=== PATIENT | male | born 1950 | race Caucasian/White ===

== ENCOUNTER 2021-08-31 18:09 | Emergency (ER) | payer MEDICARE ==
[~2021-08-31] VITALS: Ht 152.4 cm; Wt 59.0 kg
[2021-08-31 18:10] VITALS: BP_SYST 97
--- NOTE | 2021-08-31 18:10 | NUR ---
BROUGHT IN BY [facility], PLACED IN BED #4 AND TRIAGED. REPORT GIVEN TO KYLE
[2021-08-31] MEDS ORDERED: DEXTROSE 50% JECT 50 ML DISP.SYRIN IVP ONE (18:30)
--- NOTE | 2021-08-31 18:50 | NUR ---
ER at bedside examining patient.
[2021-08-31 18:52] LABS: BASOPHILS # (AUTO) 0.1 K/uL (0.0-0.2); BASOPHILS % (AUTO) 1.5 % (0.0-2.0); EOSINOPHILS # (AUTO) 0.1 K/uL (0.0-0.4); EOSINOPHILS % (AUTO) 1.6 % (0.0-4.0); HEMATOCRIT 33.1 % (36-54); LYMPHOCYTES # (AUTO) 2.2 K/uL (1.0-5.5); LYMPHOCYTES % (AUTO) 29.7 % (20.5-51.5); MEAN CORPUSCULAR HEMOGLOBIN 31 pg (27-31); MEAN CORPUSCULAR HGB CONC 33 % (32-36); MEAN CORPUSCULAR VOLUME 94 fL (79.0-98.0); MONOCYTES # (AUTO) 0.8 K/uL (0.0-1.0); MONOCYTES % (AUTO) 11.3 % (1.7-9.3); NEUTROPHILS # (AUTO) 4.1 K/uL (1.8-7.7); NEUTROPHILS % (AUTO) 55.9 % (40.0-70.0); PLATELET COUNT (AUTO) 201 K/uL (130-430); RED BLOOD CELL COUNT(AUTO) 3.53 MIL/uL (4.2-6.2); RED CELL DISTRIBUTION WIDTH 14.4 % (9.0-15.0); WHITE BLOOD COUNT (AUTO) 7.3 K/uL (4.8-10.8)
[2021-08-31 19:00] LABS: ANION GAP 7 (5-15); CALCIUM 8.8 mg/dL (8.4-11.0); CHLORIDE 105 mmol/L (98-107); CREATININE 0.92 mg/dL (0.55-1.30); GLUCOSE 64 mg/dL (70-99); POTASSIUM 5.1 mmol/L (3.5-5.1); SODIUM SERUM 137 mmol/L (136-145); UREA NITROGEN, BLOOD 23 mg/dL (8-21)
--- NOTE | 2021-08-31 19:05 | NUR ---
Pt BIBA coming from home. Pt is A&Ox4. Skin intact. Pt c/o being at home and was about to eat dinner. When pt was about to eat he got dizzy and had syncopal episode. LOC. Did not hit head. Daughter called 911 and on scene pt's BS was 41. On arrival pt's BS is at 96. Pt no has no c/o. No chest pain and no sob. Denies n/v. NKA. Has hx of Dm and drug use. Bed in lowest position. VSS.
[2021-08-31 19:09] LABS: ALANINE AMINOTRANSFERASE 33 U/L (12-78); ALBUMIN 3.2 g/dL (3.4-4.8); ASPARTATE AMINOTRANSFERASE 28 U/L (10-37); LIPASE 11 U/L (73-393); TOTAL BILIRUBIN 0.1 mg/dL (0.0-1.0)
--- NOTE | 2021-08-31 19:23 | NUR ---
Report given to Melinda to assume care.
--- NOTE | 2021-08-31 19:24 | NUR ---
REPORT RECIEVED FROM LIZZETH WRIGHT. PT IN BED RESTING. PT GIVEN TURKEY SANDWICH WITH OJ, AND CHIPS DUE TO LOW GLUCOSE. AWARE
[2021-08-31] MEDS ORDERED: DEXTROSE 50% JECT 50 ML DISP.SYRIN ONE (20:37)
--- NOTE | 2021-08-31 21:40 | NUR ---
URINE OBTAINED AND SENT TO LAB
[2021-08-31 23:11] VITALS: BP_SYST 140
--- NOTE | 2021-08-31 23:12 | NUR ---
PT PENDING DISCHARGE, IN BED NO ACUTE DISTRESS. PT IN POSITION OF COMFORT. WILL MONITOR NEEDED
--- NOTE | 2021-08-31 23:42 | NUR ---
PT DISCHARGED WITH [facility] INSTRUCTIONS, PT ENCOURAGED TO EAT BALANCED MEALS AND FOLLOW UP WITH PRIMARY CARE DOCTOR IN 2 TO 4 DAYS. PT VERBALIZED UNDERSTANDING. PT DISCHARGED IN STABLE CONDITION WITH ALL BELONGINGS VIA TAXI WITH VOUCHER.
[2021-09-01 00:11] LABS: BILIRUBIN,URINE NEGATIVE (NEGATIVE); BLOOD, URINE NEGATIVE (NEGATIVE); CLARITY/URINE CLEAR (CLEAR); COLOR,URINE YELLOW (YELLOW); GLUCOSE,URINE 3+ (NEGATIVE); KETONES,URINE NEGATIVE (NEGATIVE); LEUKOCYTE ESTERASE ,URINE NEGATIVE (NEGATIVE); NITRITE, URINE NEGATIVE (NEGATIVE); PH,URINE 6.5 (5.0-8.0); PROTEIN URINE NEGATIVE (NEGATIVE); UROBILINOGEN,URINE 0.2 (0.2-1.0)
[2021-09-01 00:42] LABS: BACTERIA,URINE RARE /HPF (None Seen); RBC,URINE 0-3 /HPF (0-3); WBC,URINE 0-3 /HPF (0-3)
== END 2021-08-31 23:44 | disposition home or self-care (01) ==
LOC: SED 18:09
DX: E11.649 Type 2 diabetes mellitus with hypoglycemia without coma (principal); R55 Syncope and collapse; D64.9 Anemia, unspecified
CPT/HCPCS: 36415; 80053; 81000; 82962; 83690; 84484; 85025; 93005; 96374; 99284

== ENCOUNTER 2022-05-31 16:44 | Emergency (ER) | payer OTHER, MEDICAID ==
[~2022-05-31] VITALS: Ht 162.6 cm; Wt 68.0 kg
[2022-05-31 16:45] VITALS: BP_SYST 206
--- NOTE | 2022-05-31 16:45 | NUR ---
BROUGHT IN BY [facility], TRIAGED. AWAITING ER BED AVAILABILITY
--- NOTE | 2022-05-31 17:03 | NUR ---
SEEN AND EVALUATED BY DR DAIGLE
--- NOTE | 2022-05-31 18:14 | NUR ---
Placed in room 03 . Placed on cardiac cath lab technologist, blood pressure machine and pulse oximeter. To gown for exam. Side rails up. Report given to LIZZETH CHAMBERLAIN.
--- NOTE | 2022-05-31 18:23 | NUR ---
PT BIBA HYPOGLYCEMIC, PT IS NOW AOX4 PT STATES HE WAS GETTING READY FOR DINNER AND PASSED OUT. GRANDAUSIRENA NOTICED HER GRANDFATHERS LOC CHANGE AND CALLED 911. PT IS NOW EATING VSS, NAD, EVEN UNLABORED RESPIRATIONS. WILL CONT TO MONITOR.
--- NOTE | 2022-05-31 18:55 | NUR ---
Note undone in ED - 05/31/22 at 191 by [email or web address] Patient to be transferred to [facility]. Is being transferred due to higher level of care. Receiving facility has accepting physician and available space. ER physician has signed transfer form. Patient or responsible libertarian has agreed to transfer and signed form. Patient belongings inventoried and will be sent with patient. Copy of nursing notes, lab reports, EKG, Physicians Orders and X-rays to be sent with patient. Report called to [facility] at receiving facility. Receiving physician is DR LAWTON. [facility] has been called for transfer. ETA is 15 MINS TO [facility]. Addendum: 05/31/22 at 1909 by [email or web address] Amendment undone in ED - 05/31/22 at 1910 by [email or web address] THIS WAS FOR THE WRONG PT.
--- NOTE | 2022-05-31 19:33 | NUR ---
Revceived in ER 3. AAO x4, RR even and unlabored. No s/sx of acute distress noted at this time.
[2022-05-31 20:09] VITALS: BP_SYST 172
--- NOTE | 2022-05-31 20:11 | NUR ---
Patient given written and verbal discharge instructions and verbalizes understanding. ER MD discussed with patient the results and treatment provided. Patient in stable condition. ID arm band removed. Opportunity for questions provided and answered.
== END 2022-05-31 20:05 | disposition home or self-care (01) ==
LOC: SED 16:44
DX: E11.649 Type 2 diabetes mellitus with hypoglycemia without coma (principal); T38.3X5A Adverse effect of insulin and oral hypoglycemic [antidiabetic] drugs, initial encounter; Z79.899 Other long term (current) drug therapy; Y92.89 Other specified places as the place of occurrence of the external cause
CPT/HCPCS: 71045; 82962; 99283

== ENCOUNTER 2023-04-16 12:39 | Emergency (ER) | payer OTHER, MEDICAID ==
[~2023-04-16] VITALS: Ht 165.1 cm; Wt 59.0 kg
[2023-04-16 12:40] VITALS: BP_SYST 141; PULSE 80; RESP 18; TEMP 97; O2SAT 96
[2023-04-16 13:35] LABS: BASOPHILS # (AUTO) 0.1 K/uL (0.0-0.2); BASOPHILS % (AUTO) 1.1 % (0.0-2.0); EOSINOPHILS # (AUTO) 0.2 K/uL (0.0-0.4); EOSINOPHILS % (AUTO) 1.9 % (0.0-4.0); LYMPHOCYTES # (AUTO) 1.7 K/uL (1.0-5.5); LYMPHOCYTES % (AUTO) 18.6 % (20.5-51.5); MEAN CORPUSCULAR HEMOGLOBIN 31 pg (27-31); MEAN CORPUSCULAR HGB CONC 32 % (32-36); MEAN CORPUSCULAR VOLUME 97 fL (79.0-98.0); MONOCYTES # (AUTO) 0.6 K/uL (0.0-1.0); MONOCYTES % (AUTO) 7.2 % (1.7-9.3); NEUTROPHILS # (AUTO) 6.4 K/uL (1.8-7.7); NEUTROPHILS % (AUTO) 71.2 % (40.0-70.0); PLATELET COUNT (AUTO) 234 K/uL (130-430); RED BLOOD CELL COUNT(AUTO) 3.21 MIL/uL (4.2-6.2); RED CELL DISTRIBUTION WIDTH 14.9 % (9.0-15.0); WHITE BLOOD COUNT (AUTO) 8.9 K/uL (4.8-10.8)
[2023-04-16 13:51] LABS: ANION GAP 6 (5-15); CALCIUM 8.7 mg/dL (8.4-11.0); CARBON DIOXIDE 25 mmol/L (23-29); CHLORIDE 108 mmol/L (98-107); CREATININE 0.62 mg/dL (0.55-1.30); GLUCOSE 80 mg/dL (74-106); POTASSIUM 4.1 mmol/L (3.5-5.1); SODIUM SERUM 139 mmol/L (136-145); UREA NITROGEN, BLOOD 15 mg/dL (8-21)
[2023-04-16] MEDS ORDERED: AMYL1CAP56 PO (16:08)
[2023-04-16 16:18] VITALS: BP_SYST 144; PULSE 64; RESP 18; TEMP 97.4; O2SAT 95
== END 2023-04-16 16:16 | disposition home or self-care (01) ==
LOC: SED 12:39
DX: E11.649 Type 2 diabetes mellitus with hypoglycemia without coma (principal); Z79.899 Other long term (current) drug therapy
CPT/HCPCS: 36415; 80048; 82962; 85025; 99283